=== PATIENT | female | born 1940 | race Caucasian/White ===

== ENCOUNTER → 2016-04-25 | Outpatient (CLI) | payer OTHER ==
[~2016-04-25] MED LIST: LEVO100T7 PO; PRED-301 PO
[2016-04-25 17:59] LABS: URINE APPEARANCE CLEAR (CLEAR); URINE BILIRUBIN NEG (NEG); URINE COLOR YELLOW; URINE NITRITE NEG (NEG); UROBILINOGEN NEG (NEG)
[2016-04-25 18:06] LABS: MANUAL MICROSCOPIC REQUIRED? NO; REVIEW REQ? NO
[2016-04-25 18:20] LABS: THYROID STIMULATING HORMONE 0.219 uIu/ml (0.300-4.500)
== END | disposition home or self-care (01) ==
LOC: C.LABMFLN 09:16
PROVIDERS: ATTEND Family Medicine
DX: R10.9 Unspecified abdominal pain (principal); E03.9 Hypothyroidism, unspecified

== ENCOUNTER → 2016-10-24 | Outpatient (CLI) | payer OTHER ==
[2016-10-24 13:38] LABS: THYROID STIMULATING HORMONE 0.301 uIu/ml (0.300-4.500)
--- NOTE | 2016-10-28 10:36 | CODING QUERY MEDICAL NECESSITY ---
SUPPORTING DIAGNOSIS NEEDED Dr. Bender, A supporting diagnosis is required for the test/procedure performed on this patient in order for us to be reimbursed by the patient's insurance. Please provide a supporting diagnosis for the following test/procedure listed below next to the test name along with your signature. *If there is no additional diagnosis for this patient that would support the following test/procedure please document that below next to the test/procedure. Test(s)/Procedure(s) that require a supporting diagnosis: * ([id number]) B12 VITAMIN LEVEL DIAGNOSIS: DATE OF SERVICE: 10/24/16 Provider Signature: Date: Thank you Woo Moser [facility] Information Management Once completed, please kindly fax back to [phone] For questions please call [phone]
== END | disposition home or self-care (01) ==
LOC: C.LABMFLN 11:26
PROVIDERS: ATTEND Family Medicine
DX: R53.83 Other fatigue (principal); E03.9 Hypothyroidism, unspecified

== ENCOUNTER → 2017-05-08 | Outpatient (CLI) | payer OTHER | END | disposition home or self-care (01) | LOC: C.LABMFLN 11:29 | PROVIDERS: ATTEND Family Medicine | DX: E03.9 Hypothyroidism, unspecified (principal) ==

== ENCOUNTER 2017-06-16 10:37 | Inpatient (IN) | payer OTHER ==
[2017-05-28 09:18] VITALS: Ht 160 cm; Wt 67.0 kg
--- NOTE | 2017-05-28 09:50 | PAT Medication Instructions ---
Service Date May 28, 2017. Current Home Medication List Abatacept (Orencia), 125 MG INJ QWEEK Levothyroxine Sodium (Levothyroxine Sodium), 100 MCG PO QAM Prednisone (Prednisone), 5 MG PO QAM [Vitamin D2], 1.25 MG BT 2X Medication Instructions For Your Scheduled Surgery -Follow the instructions given t you by your surgeon and sleeve ironer: Abatacept (Orencia), 125 MG INJ QWEEK -Continue as directed: [Vitamin D2], 1.25 MG BT 2X - Take the following medications the morning of surgery with a sip of water: Levothyroxine Sodium (Levothyroxine Sodium), 100 MCG PO QAM Prednisone (Prednisone), 5 MG PO QAM If you have any questions please call us at [phone] or [phone] or [phone]
--- NOTE | 2017-05-28 10:32 | DIAGNOSTIC IMAGING REPORT ---
CHEST 2 VIEWS ROUTINE CLINICAL HISTORY: PAT preoperative evaluation COMPARISON STUDY: No previous studies for comparison. FINDINGS: Mild emphysematous change. No significant cardiac enlargement. Diaphragms smooth. Lungs are clear. IMPRESSION: Mild emphysematous change. No acute process. The above report was generated using voice recognition software. It may contain grammatical, syntax or spelling errors. Electronically signed by: Hadley Todd M.D. 05/28/2017 10:31 AM Dictated Date/Time: 05/28/2017 10:30 AM
[2017-05-28 11:18] LABS: BASO % 0.5 %; BASO ABS # 0.04 K/uL (0-0.2); EOS ABS # 0.08 K/uL (0-0.5); HEMATOCRIT 38.3 % (37-47); HEMOGLOBIN 12.7 g/dL (12.0-16.0); IG# 0.02 K/uL (0.00-0.02); LYMPH % 14.5 %; LYMPH ABS # 1.13 K/uL (1.2-3.4); MEAN CORPUSCULAR HEMOGLOBIN 30.8 pg (25-34); MEAN CORPUSCULAR HGB CONC 33.2 g/dl (32-36); MEAN PLATELET VOLUME 11.1 fL (7.4-10.4); MONO % 5.1 %; NEUT % 78.6 %; NEUT ABS # 6.13 K/uL (1.4-6.5); PLATELET COUNT 232 K/uL (130-400); RED CELL DISTRIBUTION WIDTH CV 12.9 % (11.5-14.5); RED CELL DISTRIBUTION WIDTH SD 43.9 fL (36.4-46.3)
[2017-05-28 11:34] LABS: INR 0.9 (0.9-1.1); PTT PATIENT 26.4 SECONDS (21.0-31.0)
[2017-05-28 11:46] LABS: BLOOD UREA NITROGEN 19 mg/dl (7-18); CALCIUM 9.2 mg/dl (8.5-10.1); CARBON DIOXIDE 25 mmol/L (21-32); CREATININE 0.74 mg/dl (0.60-1.20); GLUCOSE 94 mg/dl (70-99); POTASSIUM 3.9 mmol/L (3.5-5.1); SODIUM 141 mmol/L (136-145)
--- NOTE | 2017-06-13 08:13 | HISTORY & PHYSICAL EXAMINATION ---
DATE OF ADMISSION: 06/16/2017 CHIEF COMPLAINT: Left knee pain. HISTORY OF PRESENT ILLNESS: This is a 76-year-old female with a long history of rheumatoid disease who presents on referral from my partner Dr. Aldridge for treatment of her left knee. She has had a fairly long history of left knee pain and discomfort. She describes it gotten worse over time. She has been managed by Dr. Szymanski of rheumatology at [facility] as well as my partner Dr. Aldridge. This conservative measures have become less successful over time. She has had shots in her knee which helped very temporarily. Duration is less than a month. Pain is mostly medial. It is increased with weightbearing. It is affecting her quality of life and she has decided to have her left knee fixed. PAST MEDICAL HISTORY: Significant for: 1. Rheumatoid arthritis. 2. Hypothyroidism. 3. Spine arthritis. 4. Hiatal hernia. PAST SURGICAL HISTORY: Include: 1. Cholecystectomy. 2. Hysterectomy. ALLERGIES: SULFA, HUMIRA. CURRENT MEDICINES: 1. Prednisone 5 mg. 2. Orencia. 3. Levothyroxine. 4. Vitamin D. SOCIAL HISTORY: A 76-year-old white female patient from [place]. She lives by herself. FAMILY HISTORY: Noncontributory. REVIEW OF SYSTEMS: Significant for rheumatoid disease. She is currently undergoing changing from Orencia injections to ones she gives herself. She takes once a week. Denies any chest pain or shortness of breath. No history of DVT or PE. PHYSICAL EXAMINATION: GENERAL: Reveals a pleasant, healthy, middle-aged female. Looks in pretty good health. HEENT: Benign. NECK: Supple. No lymphadenopathy. LUNGS: Clear to auscultation. HEART: Has a regular rate and rhythm. ABDOMEN: Soft, nontender, nondistended. EXTREMITIES: Grossly neurovascularly intact except as follows: Examination of left knee reveals patient walks with slight bit of a limp. She has slight varus alignment to her knee. Small knee effusion. She has bony hypertrophy medially. Range of motion about 5-120. No instability. No pain with hip motion. X-RAYS: X-ray of left knee reviewed. She has advanced medial compartment DJD. She has near complete loss of her medial joint space. She has less severe lateral compartment disease. She has subchondral sclerosis. ASSESSMENT: A 76-year-old white female with underlying rheumatoid disease with advanced left knee degenerative joint disease. She has failed conservative treatment and would like to have her left knee replaced. PLAN: We will take her to the operating room and do a left total knee replacement. The risks and benefits of the procedure were explained to the patient include but not limited to DVT, PE, , infection, neurological injury, vascular injury, bleeding problem, pain, limited range of motion, stiffness, failure to relieve her symptoms, incomplete relief of symptoms, etc. The patient understands and desires to proceed. Informed consent was obtained. As far as discharge plans, she is hoping to go home. She will likely use some home health service. She can have some friends come and stay with her as well. I do not think she should need stress dose steroids based on a low dose. She knows to hold her NSAID 2 weeks preop and postop. DAISY
[2017-06-16] VITALS (8 sets, daily range): BP systolic 146–178; BP diastolic 70–84; PULSE 78–98; TEMP 36.3–36.8; O2SAT 94–100
[~2017-06-16] VITALS: Ht 160 cm; Wt 67.0 kg
[~2017-06-16 10:37] MED LIST changes: +ACETAMINOPHEN 500 MG TAB PO SCH; +ATROPINE SULFATE 0.1 MG/ML 5ML SYR IV PRN; +BUPIVACAINE 0.25% 30 ML VIAL ONE; +BUPIVACAINE 0.5 % 5 MG/1 ML PF 10ML VIAL ONE; +BUPIVACAINE LIPOSOME 266 MG, BUPIVACAINE/EPINEPHRINE INJ 50 ML, SODIUM CHLORIDE 0.9% PF... INFIL SCH; +CEFAZOLIN 2000MG IV PUSH 15 ML IV SCH; +EpHEDrine SULFATE INJ 50 MG/ML AMP IV PRN; +FAMOTIDINE 20 MG TAB PO SCH; +GABAPENTIN 300 MG CAP PO SCH; +LACTATED RINGER'S 1000ML 1,000 ML IV SCH; +LACTATED RINGER'S 1000ML 500 ML IV SCH; +LACTATED RINGER'S 1000ML IV SCH; +METOCLOPRAMIDE HCL 10 MG TAB PO SCH; +ONDANSETRON INJ 2 MG/ML 2 ML VIAL IV PRN; +ORNI125 INJ; +TRANEXAMIC ACID INJ 1,000 MG x 2 Bags IV SCH; +VITAMIN D2 BT
[2017-06-16] MEDS ORDERED: PROPOFOL IV EMULSION 10 MG/ML 20 ML VIAL IV ONE (11:49)
[2017-06-16] MEDS ORDERED: LIDOCAINE HCL 2% 2 ML VIAL (20MG/ML) ONE (11:49)
[2017-06-16] MEDS ORDERED: FENTANYL CITRATE INJ 50 MCG/1 ML 2 ML VIAL ONE (11:49)
[2017-06-16] MEDS ORDERED: MIDAZOLAM HCL 1 MG/ML 2ML VIAL ONE (11:49)
--- NOTE | 2017-06-16 13:03 | History & Physical Bridge Note ---
H&P Re-Evaluation Bridge Note: I have examined the patient, reviewed the History & Physical and in the interval since the performance of the History & Physical I have noted the following changes of clinical significance: No changes noted
[2017-06-16] MEDS ORDERED: VANCOMYCIN HCL 1000MG/20ML VIAL ONE (13:12)
[2017-06-16] MEDS ORDERED: BUPIVACAINE 0.25% 30 ML VIAL ONE (13:12)
[2017-06-16] MEDS ORDERED: BACITRACIN 50000 UNIT VIAL ONE (13:12)
[2017-06-16] MEDS ORDERED: SODIUM CHLORIDE 0.9% PF 50 ML VIAL ONE (13:12)
[2017-06-16] MEDS ORDERED: BUPIVACAINE LIPOSOME 1/3% 266 MG/20 ML VIAL INFIL ONE (13:12)
--- NOTE | 2017-06-16 15:17 | [facility] Post Operative Brief Note ---
Immediate Operative Summary Operative Date Jun 16, 2017. Pre-Operative Diagnosis Left Knee Degenerative Joint Disease Post-Operative Diagnosis Same as preop Procedure(s) Performed Left Total Knee Arthroplasty Surgeon Dr. Purcell Overnight Associate Surgeon(s) Chuy Rae PA-C Estimated Blood Loss 50ml Findings Consistent with Post-Op Diagnosis Fluids (cc crystalloids) 1200 cc Specimens A. Left Knee Bone and Tissue Drains None Anesthesia Type MAC Spinal Regional Complication(s) none Disposition Accompanied Pt To Recover: no Disposition: Recovery Room / PACU
[2017-06-16] MEDS ORDERED: BISACODYL 10 MG SUPP PR PRN (15:30)
[2017-06-16] MEDS ORDERED: ZOLPIDEM TARTRATE 5 MG TAB PO PRN (15:30)
[2017-06-16] MEDS ORDERED: MAGNESIUM HYDROXIDE SUSP 30 ML UDC PO PRN (15:30)
[2017-06-16] MEDS ORDERED: ALUMINUM/MAGNESIUM/SIMETH (MAALOX MAX) 30 ML UDC PO PRN (15:30)
[2017-06-16] MEDS ORDERED: HYDROmorphone INJ 0.5 MG/0.5 ML SYR IV PRN (15:30)
[2017-06-16] MEDS ORDERED: METOCLOPRAMIDE HCL INJ 5 MG/ML 2 ML VIAL IV PRN (15:30)
--- NOTE | 2017-06-16 15:52 | Anesthesiology Progress Note ---
Anesthesia Post Op Note Date & Time Jun 16, 2017 at 15:52 Vital Signs Pain Intensity: 0 Vital Signs Past 12 Hours Date Time Temp Pulse Resp B/P (MAP) Pulse Ox O2 Delivery O2 Flow Rate FiO2 06/16/17 15:48 37.1 06/16/17 15:46 143/72 06/16/17 15:42 86 18 06/16/17 15:42 85 18 98 06/16/17 15:41 137/70 06/16/17 15:37 86 18 98 06/16/17 15:37 86 18 06/16/17 15:36 122/64 06/16/17 15:33 86 19 99 06/16/17 15:33 85 19 06/16/17 15:31 125/64 06/16/17 15:28 100 15 06/16/17 15:28 100 15 98 06/16/17 15:26 120/61 06/16/17 15:24 114/61 06/16/17 15:23 95 15 06/16/17 15:23 96 15 97 06/16/17 15:23 37.1 96 16 141/61 97 Nasal Cannula 2 06/16/17 11:42 36.8 89 20 152/76 96 Room Air Notes Mental Status: alert / awake / arousable, participated in evaluation Pt Amnestic to Procedure: Yes Nausea / Vomiting: adequately controlled Pain: adequately controlled Airway Patency, RR, SpO2: stable & adequate BP & HR: stable & adequate Hydration State: stable & adequate Neuraxial Anesthesia: was administered, sensory block is resolving Anesthetic Complications: no major complications apparent
--- NOTE | 2017-06-16 16:08 | DIAGNOSTIC IMAGING REPORT ---
LEFT KNEE 2 VIEWS History: Left total knee arthroplasty. Degenerative arthritis. Postop. FINDINGS: The patient is status post a left total knee arthroplasty. The hardware is intact. No fracture or dislocation. Skin precious are in place. IMPRESSION: Left total knee arthroplasty. No evidence for hardware complication. Electronically signed by: Hima Tenorio M.D. 06/16/2017 4:06 PM Dictated Date/Time: 06/16/2017 4:05 PM
[2017-06-16] MEDS ORDERED: ONDANSETRON INJ 2 MG/ML 2 ML VIAL ONE (17:13)
--- NOTE | 2017-06-16 18:00 | OPERATIVE REPORT ---
DATE OF OPERATION: 06/16/2017 SURGEON: Elias Purcell MD BRAND INSPECTOR: EMMA Dhaliwal PREOPERATIVE DIAGNOSIS: Left knee degenerative joint disease. POSTOPERATIVE DIAGNOSIS: Same. PROCEDURE PERFORMED: Left cemented posterior stabilized total knee arthroplasty. COMPLICATIONS: None. ESTIMATED BLOOD LOSS: 50 mL. FLUID REPLACEMENT: 1200 mL crystalloid. TOURNIQUET TIME: 57 minutes at 300 mmHg. ANESTHESIA: Spinal with adductor canal block. DRAINS: None. SPECIMENS: Left knee sent for pathology. OPERATIVE INDICATIONS: The patient is a 76-year-old fairly independent female who has had a long history of bilateral knee pain and discomfort. She has a known history of rheumatoid arthritis, managed by night court magistrate at [facility]. She has failed conservative treatment. She became more and more debilitated by her knee pain. She elected to proceed with left total knee replacement. OPERATIVE FINDINGS: Operative findings revealed advanced left knee DJD with grade 4 bone on bone disease of the medial and patellofemoral compartments. It did not look particularly inflammatory in nature. Moderate size joint effusion. She had a fixed varus deformity to her knee. She had osteophytes in the medial and patellofemoral compartments. OPERATIVE IMPLANTS: Operative implants consisted of: 1. Biomet Vanguard size 65 left posterior stabilized femoral component. 2. Biomet size 71 tibial tray. 3. A 10-mm posterior stabilized polyethylene insert. 4. A 31 x 8 all poly patella. OPERATIVE PROCEDURE: The patient was taken to the operating room, identified, and placed on the operative table in the supine position. All contact areas were appropriately padded. IV antibiotics were provided by the anesthesia team. A spinal anesthetic and adductor canal block had been provided in the holding area. Mesa catheter was placed in sterile fashion. A left thigh tourniquet was then placed and left lower extremity was then prepped and draped in the usual sterile fashion. The left leg was elevated, exsanguinated with Esmarch and tourniquet was placed at 300 mmHg. An anterior approach to the left knee was then performed through a longitudinal incision centered over the patella. Sharp dissection was carried through subcutaneous tissues down to the level of the extensor mechanism. A medial parapatellar arthrotomy incision was made. Some subperiosteal dissection was carried out medially. The fat pad was resected from beneath the patellar tendon. Lateral patellofemoral ligament was released. Patella was everted and knee was flexed. The osteophytes were taken off the distal femur. The ACL and PCL were then released from the distal femur and the tibia subluxated anteriorly. External tibial alignment jig was then placed in the anterior face of the tibia and adjusted 12 mm medially. Proximal tibial cut was made to remove about a millimeter of bone from the most deficient aspect of the medial tibial plateau. Some osteophytes were taken off medial and posteromedially. The tibia sized to a size 71. Attention was then drawn to the femur. The distal femur was entered with a sharp drill. Intramedullary canal was suctioned. A left 5-degree valgus cutting guide was placed. Distal femoral cutting block was pinned in place. Distal femoral cut was made to take an additional 3 mm of bone off the distal femur. The femur was then sized to a size 65. It almost sized exactly to a 65. The AP cutting block was then pinned parallel to the epicondylar axis, which was 4 degrees of external rotation. The anterior cut, anterior chamfer, posterior cut, and posterior chamfer cuts were made. Box cutting guide was placed and adjusted slight lateral and the box cut was made. The knee was flexed. The remnants of the medial and lateral menisci were excised. The osteophytes were taken off the posterior aspect of the femur. A trial femoral component was placed. Tibial tray was pinned in maximum external rotation. Drill and stem punch were used to create defect in proximal tibia for the tibial tray. The knee was then trialed and a 10-mm insert fit most appropriately. Attention was then drawn to the patella. The patella was cleaned of all soft tissues. Patella thickness measured 22 mm in thickness and it was cut down to 13. It was sized to a size 31 patella. Lug holes were drilled for 31 patella. Lateral osteophytes were removed. Patella button was placed. Knee was taken through range of motion and patella tracked nicely with no thumbs test. Attention was then drawn toward placement of the permanent components. All trial components were removed. A bone plug was placed in the distal femur to limit blood loss. A double batch of Palacos G cement was mixed. I did place an additional gram of vancomycin in the cement due to her rheumatoid disease and immunocompromised state. A size 65 posterior stabilized femoral component, a size 71 tibial tray, a 10-mm posterior stabilized polyethylene insert, and a 31 x 8 all poly patella then cemented in place. Knee was brought out into full extension until cement hardened. A final cement check was then performed. Pericapsular tissues were injected with a total of 100 mL of combination of 20 mL of Exparel, 30 mL of normal saline, and 50 mL of 0.25% Marcaine with epinephrine. The patient did receive 1 gram of tranexamic acid. The tourniquet was then let down for a tourniquet time of 57 minutes. Hemostasis was assured with the use of electrocautery. Extensor mechanism was closed with a combination of #1 PDS suture and #1 Vicryl suture in a [id number] fashion. Extensor mechanism was checked and found to be intact. Subcutaneous tissues were then closed with 2-0 Dexon suture in a buried interrupted fashion. Skin was closed skin precious. Leg was then cleaned and dried and a sterile dressing of Xeroform, 4 x 4, sterile cast padding and Fidencio bandage were applied. The patient was then transferred to the recovery room in stable condition. The patient tolerated the procedure well with no complication. All needle and sponge counts were correct at the end of the operation. I attest to the content of the Intraoperative Record and any orders documented therein. Any exception s are noted below.
[2017-06-16] MEDS: D5W AND 1/2NSS + 20MEQ KCL 1,000 ML IV SCH (18:39)
[2017-06-16] MEDS: TRAMADOL HCL 50 MG TAB PO PRN ×2 (18:43→23:52)
[2017-06-16] MEDS: KETOROLAC TROMETHAMINE 15 MG/ML VIAL IV. SCH ×2 (19:16→23:52)
[2017-06-16] MEDS: FERROUS GLUCONATE 324 MG TAB PO SCH (19:16)
[2017-06-16] MEDS: ASPIRIN 81 MG ECTAB PO SCH (21:26)
[2017-06-16] MEDS: SENNA 8.6 MG TAB PO SCH (21:26)
[2017-06-16] MEDS: DOCUSATE SODIUM 100 MG CAP PO SCH (21:26)
[2017-06-16] MEDS ORDERED: TRANEXAMIC ACID INJ 1,000 MG in SODIUM CHLORIDE 0.9% 100ML 100 ML IV SCH (21:30)
[2017-06-16] MEDS: ACETAMINOPHEN 500 MG TAB PO SCH (21:52)
[2017-06-16] MEDS: CEFAZOLIN IV 1,000 MG in SYRINGE 0 ML IV SCH (21:52)
[2017-06-16] MEDS ORDERED: ULT50X PO (22:10)
[2017-06-16] MEDS ORDERED: ACET-24 PO (22:10)
[2017-06-16] MEDS ORDERED: FRRG PO (22:10)
[2017-06-16] MEDS ORDERED: ASPEC81 PO (22:10)
--- NOTE | 2017-06-16 22:13 | Discharge Instructions ---
Discharge Instructions Date of Service Jun 16, 2017. Admission Reason for Admission: Left Knee Degenerative Joint Disease Discharge Discharge Diagnosis / Problem: Left Knee Replacement Discharge Goals Goal(s): Decrease discomfort, Improve function, Increase independence, Improve disease control, Therapeutic intervention Activity Recommendations Activity Limitations: per Instructions/Follow-up section Weightbearing Status: Left weightbearing . Instructions / Follow-Up Instructions / Follow-Up ACTIVITY RECOMMENDATIONS: Physical Therapy: * You will go to physical therapy three times each week for four to six weeks after your surgery in order to regain your knee range of motion and to retrain your knee to work properly. * It is just as important to make sure you are getting your knee perfectly straight as it is to regain your knee bend. * Taking a pain pill an hour before therapy can help you have a more productive and comfortable therapy session. Home Exercise: * You were shown a series of exercises (heel props, heel slides, etc.) in the hospital. Do these exercises three to four times each day including the exercises you were shown in physical therapy. Walking: * Get up and walk several times each day. For the first four weeks, try not to stand or walk for more than one hour at a time. If you do stand or walk for more than one hour, you will not hurt anything, but your knee and leg will likely swell. * As you feel comfortable, you may change from the walker or crutches to a cane and then to independent walking. MEDICATIONS: New Medicine: * You will likely be taking one or more of these medications: 1. Tramadol - A quick and shorter-acting pain medication. Take one to two tablets every four to six hours to lessen your pain. 2. Iron Sulfate - Take two times each day for the month after surgery to help you replace the blood lost during surgery. 3. Aspirin - Thins your blood to lessen the chance of forming a blood clot. * The most common side effects of pain medicine and iron are nausea and constipation. If nausea or constipation is too much of a problem or if you have any questions about your new medicines or doses, call [facility] at . We will try to help you manage these issues. VERY IMPORTANT TO READ AND REVIEW" Pain: * The immediate post-operative period after knee replacement surgery is often quite painful. * You are given a prescription for pain medicine. You should take it, as directed, when you need it, especially before physical therapy and before going to bed. Pain that interferes with sleep is very common and can last several months. * You will likely need pain medicine for the first four to six weeks. It will not stop all of the pain. The pain will lessen and as you feel better, you may change to milder pain medicine such as Tylenol. * The most common side effects of pain medicine are nausea and constipation, so don't take more than you need. SPECIAL CARE INSTRUCTIONS: TEDs/Elastic Stockings: * The white elastic stockings help limit swelling and prevent blood clots from forming in your legs. The more you wear them, the more they work. * Wear them for six weeks after knee replacement surgery and four weeks after partial knee replacement. Prevention of Infection: * Take antibiotics one hour before any dental cleaning, dental work, urological procedure, gastrointestinal procedure or any invasive surgery in order to prevent your new joint from getting infected. * You may get the antibiotics from the doctor performing the procedure or you may call our office at before and we will call in a prescription to the pharmacy of your choice. Things to Watch For: * Drainage from the incision site that occurs more than one week after your surgery. * Severely increased knee/leg pain or swelling. * Increased redness at the incision site. * Fever above 102 degrees Fahrenheit. * Unusual chest pain or shortness of breath. * Unusual pain or burning with urination. Call [facility] at with any of the above problems or if you have any questions about your medicines or recovery. FOLLOW UP VISIT: Make an appointment to see your doctor for approximately two weeks after surgery for a progress check and staple removal by calling the office at . Current Hospital Diet Patient's current hospital diet: Regular Diet Discharge Diet Recommended Diet: Regular Diet Procedures Procedures Performed: Left Total Knee Arthroplasty Pending Studies Studies pending at discharge: no Medical Emergencies . Who to Call and When: Medical Emergencies: If at any time you feel your situation is an emergency, please call [phone] immediately. . Non-Emergent Contact Non-Emergency issues call your: Surgeon . "Provider Documentation" section prepared by Elias Purcell. .
[2017-06-17] VITALS (7 sets, daily range): BP systolic 135–156; BP diastolic 71–85; PULSE 82–97; TEMP 36.6–36.9; O2SAT 93–94
[2017-06-17] MEDS: D5W AND 1/2NSS + 20MEQ KCL 1,000 ML IV SCH ×2 (03:31→13:25)
[2017-06-17] MEDS: LEVOTHYROXINE 100 MCG TAB PO SCH (05:32)
[2017-06-17] MEDS: CEFAZOLIN IV 1,000 MG in SYRINGE 0 ML IV SCH (05:33)
[2017-06-17] MEDS: ACETAMINOPHEN 500 MG TAB PO SCH ×3 (05:33→21:37)
[2017-06-17] MEDS: KETOROLAC TROMETHAMINE 15 MG/ML VIAL IV. SCH ×4 (05:34→23:30)
[2017-06-17] MEDS: TRAMADOL HCL 50 MG TAB PO PRN ×4 (05:44→23:30)
[2017-06-17 07:12] LABS: HEMATOCRIT 33.2 % (37-47); MEAN CELL VOLUME 93.5 fL (80-100); MEAN CORPUSCULAR HGB CONC 33.1 g/dl (32-36); MEAN PLATELET VOLUME 10.6 fL (7.4-10.4); PLATELET COUNT 142 K/uL (130-400); RED CELL DISTRIBUTION WIDTH SD 44.8 fL (36.4-46.3)
[2017-06-17] MEDS: ONDANSETRON INJ 2 MG/ML 2 ML VIAL IV PRN ×2 (07:45→17:22)
[2017-06-17 07:52] LABS: CALCIUM 7.6 mg/dl (8.5-10.1); CREATININE 0.71 mg/dl (0.60-1.20); POTASSIUM 4.2 mmol/L (3.5-5.1)
[2017-06-17] MEDS: MULTIVITAMIN TAB PO SCH (09:00)
[2017-06-17] MEDS: ASPIRIN 81 MG ECTAB PO SCH ×2 (09:08→20:39)
[2017-06-17] MEDS: FERROUS GLUCONATE 324 MG TAB PO SCH ×3 (09:08→17:45)
[2017-06-17] MEDS: PANTOprazole SOD 40 MG TAB PO SCH (09:08)
[2017-06-17] MEDS: DOCUSATE SODIUM 100 MG CAP PO SCH ×2 (09:10→20:39)
--- NOTE | 2017-06-17 10:52 | Anesthesiology Progress Note ---
Anesthesia Post Op Note Date & Time Jun 17, 2017 at 10:51 Vital Signs Pain Intensity: 0.0 Vital Signs Past 12 Hours Date Time Temp Pulse Resp B/P (MAP) Pulse Ox O2 Delivery O2 Flow Rate FiO2 06/17/17 09:10 142/85 (104) 06/17/17 08:36 94 Room Air 06/17/17 07:54 36.7 84 16 153/78 (103) 94 Room Air 06/17/17 07:30 Room Air 06/17/17 02:44 36.6 82 16 145/72 (96) 93 Room Air 06/16/17 23:50 Room Air 06/16/17 23:00 36.6 84 16 146/70 (95) 94 Room Air Notes Mental Status: alert / awake / arousable, participated in evaluation Pt Amnestic to Procedure: Yes Nausea / Vomiting: adequately controlled Pain: adequately controlled Airway Patency, RR, SpO2: stable & adequate BP & HR: stable & adequate Hydration State: stable & adequate Neuraxial Anesthesia: was administered, sensory block resolved Anesthetic Complications: no major complications apparent
--- NOTE | 2017-06-17 13:56 | PROGRESS NOTE ---
DATE: 06/17/2017 SUBJECTIVE: A 76-year-old white female postop day #1 from a left knee replacement. She is doing pretty well. A moderate amount of pain. Unfortunately, she gets kind of nausea with pain medicines. No chest pain or shortness of breath. Not feeling dizzy or lightheaded. OBJECTIVE: VITAL SIGNS: Temperature 36.8. Vital signs stable. GENERAL: Physical examination reveals a pleasant elderly female, sitting up in her bedside chair and looks pretty comfortable. LUNGS: Clear to auscultation. HEART: Regular rate and rhythm. ABDOMEN: Soft, nontender, and nondistended. EXTREMITIES: Grossly neurovascularly intact except as follows: Examination of the left leg reveals the dressing to be clean, dry and intact. Leg is well aligned. She can dorsiflex and plantarflex her foot appropriately. She is neurologically intact. LABORATORY DATA: Hemoglobin 11.0 and hematocrit 33.2. Electrolytes are stable. ASSESSMENT: A 76-year-old white female postop day #1 from a left knee replacement, doing pretty well. Having some pain, which is not unexpected. Unfortunately, she gets pretty nauseated with the medicines. PLAN: 1. DVT prophylaxis including thigh-high TEDs, SCDs, and aspirin twice a day. 2. PT/OT. Weightbear as tolerated. Left total knee protocol. 3. Pain control. Doing okay with current pain regimen. We are going to stick to around the clock Tylenol and try and limit her narcotic use. We will use some Toradol as well. 4. Disposition: She is hoping to be discharged to home with some home health once adequately recovered. She is going to have some friends come and stay with her. DAISY
[2017-06-17] MEDS: SENNA 8.6 MG TAB PO SCH (20:39)
[2017-06-18] MEDS: ACETAMINOPHEN 500 MG TAB PO SCH (05:56)
[2017-06-18] MEDS: LEVOTHYROXINE 100 MCG TAB PO SCH (05:56)
[2017-06-18] MEDS: KETOROLAC TROMETHAMINE 15 MG/ML VIAL IV. SCH ×2 (05:57→12:08)
[2017-06-18 07:08] VITALS: BP 125/68; PULSE 89; TEMP 36.6; O2SAT 93
[2017-06-18] MEDS: PANTOprazole SOD 40 MG TAB PO SCH (08:40)
[2017-06-18] MEDS: MULTIVITAMIN TAB PO SCH (08:40)
[2017-06-18] MEDS: DOCUSATE SODIUM 100 MG CAP PO SCH (08:41)
[2017-06-18] MEDS: ASPIRIN 81 MG ECTAB PO SCH (08:41)
[2017-06-18] MEDS: FERROUS GLUCONATE 324 MG TAB PO SCH ×2 (08:41→12:08)
[2017-06-18] MEDS: TRAMADOL HCL 50 MG TAB PO PRN (08:43)
[2017-06-18] MEDS ORDERED: ERGOCALCIFEROL 50,000 INTER.UNIT CAP PO SCH (09:00)
--- NOTE | 2017-06-18 11:42 | PROGRESS NOTE ---
DATE: 06/18/2017 SUBJECTIVE: A 76-year-old white female postop day 2 from a left knee replacement. She is doing relatively well. Some pain but doing okay with the pain meds. Therapy has gone reasonably well. Denies any chest pain or shortness of breath. Not feeling dizzy or lightheaded. OBJECTIVE: VITAL SIGNS: Temperature is 36.6. Vital signs stable. PHYSICAL EXAMINATION: GENERAL: Reveals a pleasant elderly female. She is sitting up in bed, looks reasonably comfortable. EXTREMITIES: Examination of the left leg reveals the leg to be well aligned. Dressing is clean and dry and intact. No drainage. Calf is soft and supple. NEUROLOGIC: She is neurologically intact. ASSESSMENT: A 76-year-old white female postop day 2 from a left knee replacement, doing pretty well. Some pain but not unexpected. She is doing pretty well with the pain meds. PLAN: 1. DVT prophylaxis including thigh-high TEDs, SCDs, and aspirin twice a day. 2. PT/OT. Weight bear as tolerated. Left total knee protocol. 3. Pain control, doing pretty well with current pain regimen. 4. Disposition: She is hoping to be discharged to home with some home health and some friends are going to stay with her.
[2017-06-18 11:54] VITALS: BP 125/68; PULSE 89; TEMP 36.6; O2SAT 93
--- NOTE | 2017-06-24 12:17 | DISCHARGE SUMMARY ---
ADMITTING PHYSICIAN AND SURGEON: Dr. Elias Purcell. ADMITTING DIAGNOSIS: Left knee degenerative joint disease. SURGERY PERFORMED: Left total knee arthroplasty. SECONDARY DIAGNOSES: Rheumatoid arthritis, hypothyroidism, spinal arthritis, hiatal hernia. CONSULTS: None obtained. HISTORY AND PHYSICAL EXAMINATION: Well documented in the patient's chart. HOSPITAL COURSE: The patient was admitted on 06/16/2017 underwent total knee arthroplasty, tolerated the procedure well. There were no complications. She was transferred to the PACU postoperatively and later to the orthopedic for further care. She was given Ancef for antibiotic prophylaxis, TAYA stockings, SCDs and aspirin for DVT prophylaxis. Hemoglobin, hematocrit and vital signs were monitored during her hospital stay and remained stable. She did not require any blood transfusions. There were no complications. By postoperative day 2, she was tolerating regular diet, pain was controlled with oral pain medicine. She was participating in physical therapy. On postop day 2, she was discharged home, set with home health services. She was given printed discharge instructions including new prescriptions for extra strength Tylenol, aspirin, iron supplement and tramadol. Continue her home medications, continue physical therapy, weightbearing as tolerated, TAYA stockings. Follow up 10-12 days or sooner if there are any problems or concerns.
== END 2017-06-18 12:47 | disposition home health service (06) | DRG 470 ==
LOC: C.ACU 10:37 → C.3E 13:20 → ENRESERV 15:40
PROVIDERS: ADMIT Orthopaedic Surgery Sports Medicine; ATTEND Orthopaedic Surgery Sports Medicine
PROC: 0SRD0J9 Replacement of Left Knee Joint with Synthetic Substitute, Cemented, Open Approach (ICD-10-PCS; principal; 2017-06-16 13:00)
DX: M17.12 Unilateral primary osteoarthritis, left knee (principal); M06.9 Rheumatoid arthritis, unspecified; E03.9 Hypothyroidism, unspecified; M47.9 Spondylosis, unspecified; K44.9 Diaphragmatic hernia without obstruction or gangrene; Z88.2 Allergy status to sulfonamides; Z79.52 Long term (current) use of systemic steroids

== ENCOUNTER → 2017-07-27 | Outpatient (CLI) | payer OTHER ==
[~2017-07-27] MED LIST changes: +ACET-24 PO; -ACETAMINOPHEN 500 MG TAB PO SCH; +ASPI-320 PO; -ATROPINE SULFATE 0.1 MG/ML 5ML SYR IV PRN; -BUPIVACAINE 0.25% 30 ML VIAL ONE; -BUPIVACAINE 0.5 % 5 MG/1 ML PF 10ML VIAL ONE; -BUPIVACAINE LIPOSOME 266 MG, BUPIVACAINE/EPINEPHRINE INJ 50 ML, SODIUM CHLORIDE 0.9% PF... INFIL SCH; -CEFAZOLIN 2000MG IV PUSH 15 ML IV SCH; -EpHEDrine SULFATE INJ 50 MG/ML AMP IV PRN; -FAMOTIDINE 20 MG TAB PO SCH; +FRRG PO; -GABAPENTIN 300 MG CAP PO SCH; -LACTATED RINGER'S 1000ML 1,000 ML IV SCH; -LACTATED RINGER'S 1000ML 500 ML IV SCH; -LACTATED RINGER'S 1000ML IV SCH; -METOCLOPRAMIDE HCL 10 MG TAB PO SCH; -ONDANSETRON INJ 2 MG/ML 2 ML VIAL IV PRN; -TRANEXAMIC ACID INJ 1,000 MG x 2 Bags IV SCH; +ULT50X PO
[2017-07-27 18:10] LABS: ALBUMIN 3.8 gm/dl (3.4-5.0); ALT/SGPT 25 U/L (12-78); AST/SGOT 25 U/L (15-37); BLOOD UREA NITROGEN 24 mg/dl (7-18); CALCIUM 9.1 mg/dl (8.5-10.1); CARBON DIOXIDE 27 mmol/L (21-32); CREATININE 0.92 mg/dl (0.60-1.20); GLUCOSE 91 mg/dl (70-99); LIPASE 170 U/L (73-393); POTASSIUM 4.5 mmol/L (3.5-5.1); SODIUM 140 mmol/L (136-145)
[2017-07-27 18:13] LABS: ALKALINE PHOSPHATASE 59 U/L (45-117); TOTAL PROTEIN 7.4 gm/dl (6.4-8.2)
== END | disposition home or self-care (01) ==
LOC: C.LABMFLN 14:21
PROVIDERS: ATTEND Family Medicine
DX: R11.0 Nausea (principal)